=== PATIENT | male | born 1945 | race Caucasian/White ===

== ENCOUNTER 2016-12-24 15:12 | Inpatient (IN) | payer MEDICARE ==
[~2016-12-24] VITALS: Ht 182.9 cm; Wt 84.6 kg
[~2016-12-24 15:12] MED LIST: ACET-2321 PO; ASPI-557 PO; BETH25TA PO; CHOL100018 PO; CITA20TA17 PO; CLOP75TA PO; FAMO20TA8 PO; FINA5TAB42 PO; LISI-621 PO; LUBI8CAP PO; OXYC5CAP3 PO; PANT40TA PO; TAMS0.4C47 PO
--- OUTSIDE RECORDS SUMMARY | 2016-12-24 15:52 | XMS REPORT | Continuity of Care Document ---
Author Author [facility] Organization [facility] Address Unknown Phone Unavailable Care Team Providers Care Hogshead Stock Clerk Name Role Phone Sylvain Montes Primary Care Physician [phone] Source Comments Some departments are not documenting in the electronic medical record. If you do not see the information that you expected, contact Release of Information in the Health Information Management department at [phone] for further assistance in locating additional records.[facility] Active Allergies and Adverse Reactions Allergen Noted Date Severity Reactions Comments Peanut 03/31/2015 High ANAPHYLAXIS Jskiiid-Whu-Vpf Reductase 03/31/2015 Medium MUSCLE PAIN Inhibitors Current Medications Prescription Sig. Disp. Refills Start End Date Status Date clopiDOGrel (PLAVIX) 75 Take 75 mg by mouth Active mg tablet daily. aspirin EC 81 mg tablet Take 81 mg by mouth Active daily. acetaminophen (TYLENOL) Take 2 Tabs by mouth 30 Tab 1 06/02/20 Active 325 mg tablet every 6 hours as needed 15 for Pain. citalopram (CELEXA) 20 mg Take 20 mg by mouth Active tablet daily. cholecalciferol (VITAMIN Take 1,000 Units by mouth Active D-3) 1,000 units tablet daily. oxyCODONE (ROXICODONE) 5 Take 1-3 Tabs by mouth 30 Tab 0 07/26/20 Active mg tablet every 4 hours as needed 15 for Pain Earliest Fill Date: 07/26/15 amiodarone (PACERONE) 400 Take 1 Tab by mouth twice 180 Tab 3 Active mg tablet daily. 15 amiodarone (CORDARONE) Take 1 Tab by mouth twice 180 Tab 3 07/30/20 Active 200 mg tablet daily. 15 polyethylene glycol 3350 Take 17 g by mouth daily. 3 Bottle 3 Active (GLYCOLAX; MIRALAX) 17 15 gram/dose powder senna/docusate Take 2 Tabs by mouth 07/26/20 Active (SENOKOT-S) 8.6/50 mg twice daily. [address] Take 1 Tab by mouth 90 Tab 3 07/26/20 Active (PROTONIX) 40 mg tablet daily. 15 lidocaine (LIDODERM) 5 % Apply 1 Patch to affected 30 Patch 1 Active topical patch area every 24 hours. 15 Apply to abdomen. May cut to fit. On for 12hrs, off for 12hrs. Active Problems Problem Noted Date Severe protein-calorie malnutrition (HCC) 07/26/2015 Atrial fibrillation with RVR ([facility]) 07/26/2015 Overview: 07/20/15: New onset AF with RVR. Consult cardiology. Amio gtt. ECHO 07/20/15: No regional wall motion abnormalities are seen. Overall LV systolic function appears normal. The estimated left ventricular ejection fraction is 60%. Right ventricular contractility appears normal. Mild bi-atrial enlargement. Aortic valve sclerosis without stenosis. No pericardial effusion is seen. 07/21/15: ST vs A flutter. Add cardizem gtt. 07/22/15: Since did not convert to NSR, DC amio and cardizem. 07/23/15: Converted to NSR after stopping amio. DC cardizem gtt. Amio 400mg BID x1 week and then taper. S/P exploratory laparotomy 07/18/2015 Overview: 07/17/15: Exploratory laparotomy, adhesiolysis, hepaticojejunostomy, repositioning of new 14-Greek pigtail catheter into the hepaticojejunostomy. HTN (hypertension) 07/18/2015 Overview: MOLD FILLER: Lisinopril 20mg daily, Cardizem CD 240mg daily CAD (coronary artery disease) 07/18/2015 Overview: MOLD FILLER: Plavix 75mg daily, ASA 81mg daily Depression 07/18/2015 Overview: MOLD FILLER: Celexa 20mg daily Vitamin D deficiency 07/18/2015 Overview: MOLD FILLER: Vitamin d3 1000mg daily Injury of common bile duct during operative procedure 07/17/2015 Sepsis ([facility]) 06/09/2015 Cholangitis 06/02/2015 SIRS (systemic inflammatory response syndrome) ([facility]) 06/02/2015 Gram-negative bacteremia 06/01/2015 Coronary artery disease involving quileute coronary artery of quileute heart 06/2015 without angina pectoris Bile duct injury 03/31/2015 Immunizations Name Dates Previously Given Next Due Flu Vaccine 07/19/2015 Quadrivalent=>3 Yo (Preservative Free) Pneumococcal Vaccine 07/19/2015 (23-Kary Adult) Social History Tobacco Use Types Packs/Day Years Used Date Current Every Day Smoker Cigarettes 0.5 50 Smokeless Tobacco: Never Used Tobacco Cessation: Ready to Quit: No Comments: Alcohol Use Drinks/Week oz/Week Comments No 0 Standard 0.0 drinks or equivalent Last Filed Vital Signs Vital Sign Reading Time Taken Blood Pressure 129/56 07/26/2015 8:04 AM SYSTEMS SOFTWARE DESIGNER Pulse 60 07/26/2015 8:04 AM SYSTEMS SOFTWARE DESIGNER Temperature 36.4 C (97.5 F) 07/26/2015 8:04 AM SYSTEMS SOFTWARE DESIGNER Respiratory Rate - - Height 1.88 m (6' 2") 07/20/2015 3:18 PM CDT Weight 77.565 kg (171 lb) 07/20/2015 3:18 PM CDT Body Mass Index 21.95 07/20/2015 3:18 PM CDT Oxygen Saturation 95% 07/26/2015 8:04 AM SYSTEMS SOFTWARE DESIGNER Plan of Care Health Maintenance Due Date Last Done Comments Hepatitis C Screening 1945 Physical (Comprehensive) 1952 Exam Pertussis Vaccine 1956 Tetanus Vaccine 1962 Colorectal Cancer 1995 Screening Shingles Vaccine 2005 Abdominal Aortic Aneurysm 2010 Screening Prevnar/Pneumovax (#2) 07/19/2016 07/19/2015 Influenza Vaccine 05/23/2017 07/19/2015 Results from Last 3 Months Not on file
--- NOTE | 2016-12-24 15:53 | NUR ---
ADMIT PT TO RM 138 PER CART VIA [facility]. REPORT HAD PREVIOUSLY BEEN RECEIVED FROM MARI SIFUENTES FROM [facility]. PT UNRESPONSIVE. PT TRANSFERRED TO BED WITH ASSIST X4. PT INCONTINENT OF STOOL. CLEAN ATTENDS AND AME CARE GIVEN. VITALS OBTAINED AND STABLE CHARTED. PT ON O2 AT 6-7L FOR PT COMFORT. FAMILY AT BEDSIDE. WILL MONITOR.
--- OUTSIDE RECORDS SUMMARY | 2016-12-24 15:53 | XMS REPORT | Continuity of Care Document ---
Author Author [facility] Organization [facility] Address Unknown Phone Unavailable Support Name Relationship Address Phone CHILO REAL MD Caregiver [address] [place] [address] Unavailable JERRICA OLIVERA MD Caregiver [address] [place] [address] Unavailable SVITLANA GOODMAN Next Of Kin [address] [place] [address] Insurance Providers Guarantor Dillon Goodman Address [address] [place] [id number] Email UNABLE 12-21-16 Payer [employer] Policy Number [id number] Subscriber's Name Dillon Goodman Relationship 18 Self Advance Directives Directive Response Recorded Date/Time Advanced Directives Type None 12/21/16 10:22am Chief Complaint and Reason for Visit Chief Complaint Resuscitation Reason for Visit History of successful cardiopulmonary resuscitation Problems Active Problems Medical Problem Onset Date Status Anemia associated with nutritional deficiency Unknown Chronic Bradycardia with anesthesia Unknown Resolved Bradycardia with less than 60 beats per minute Unknown Chronic CAD (coronary artery disease) Unknown Chronic COPD (chronic obstructive pulmonary disease) Unknown Chronic Chest pain Unknown Acute HTN (hypertension) Unknown Chronic History of common bile duct surgery ~03/2015 Resolved Laceration of thumb, left Unknown Acute Malnutrition related to chronic disease Unknown Chronic Nausea Unknown Acute Statin intolerance Unknown Chronic Surgical wound breakdown Unknown Chronic Surgical wound infection Unknown Chronic Tobacco abuse Unknown Chronic Urinary retention with incomplete bladder emptying Unknown Acute Surgical Problem Onset Date Status History of heart artery stent Unknown Chronic Past Problems Medical Problem Onset Date History of successful cardiopulmonary resuscitation Unknown Medications Current Home Medications Medication Dose Units Route Directions Days Qty Instructions Start Date Acetaminophen (Tylenol) 325 Mg Tablet 2 Tab Oral Every 6 Hours as needed for Pain 07/28/15 Aspirin (Aspir 81) 81 Mg Tablet. 1 Tab Oral Daily 02/23/15 Bethanechol Chloride 25 Mg Tablet 1 Tab Oral Four Times Daily BEST ON EMPTY STOMACH 09/14/15 Cholecalciferol (Vitamin D3) 1,000 Unit Tablet 1 Tab Oral Daily 30 Tablet 09/14/15 Citalopram Hydrobromide (Celexa) 20 Mg Tablet 1 Tab Oral Daily Clopidogrel Bisulfate (Plavix) 75 Mg Tablet 1 Tab Oral Daily 03/06 Famotidine 20 Mg Tablet 1 Tab Oral Twice A Day 09/14/15 Finasteride 5 Mg Tablet 1 Tab Oral Daily 09/14/15 Lisinopril 20 Mg Tablet 1 Tab Oral Daily 02/23/15 Lubiprostone (Amitiza) 8 Mcg Capsule 1 Cap Oral Twice A Day 08/25 Oxycodone Hcl 5 Mg Capsule 1 Cap Oral Every 4 Hours Prn as needed for Pain 90 Capsule 09/14/15 Pantoprazole Sodium (Protonix) 40 Mg Tablet.dr 1 Tab Oral Before Breakfast 07/28/15 Tamsulosin Hcl 0.4 Mg Cap.er.24h 1 Tab Oral Bedtime 09/14/15 Past Home Medications Medication Directions Ordered Status Amiodarone Hcl (Pacerone) 400 Mg Tablet, 400 Mg Oral Twice A Day 07/28/15 Discontinued Amiodarone Hcl (Cordarone) 200 Mg Tablet, 200 Mg Oral Twice A Day 07/28/15 Discontinued Amoxicillin/Potassium Clav (Augmentin 875-125 Tablet) 1 Each Tablet, 1 Tab Oral Twice A Day 07/28/15 Discontinued Oxycodone Hcl (Roxicodone) 5 Mg Tablet, 5-15 Mg Oral Every 4 Hours Prn as needed for Pain 07/28/15 Discontinued Social History Social History Problem Response Recorded Date/Time Onset Date Status Hx Substance Use No 12/21/2016 10:30am Not Applicable Not Applicable Hx Alcohol Use No 12/21/2016 10:30am Not Applicable Not Applicable Has the pt used tobacco in the last 12 months Yes 08/28/2015 12:25pm Not Applicable Not Applicable Tobacco Usage smoke 07/28/2015 3:17pm Not Applicable Not Applicable Query Response Start Date Stop Date Smoking Status Smoker,current status unk Hospital Discharge Instructions No hospital discharge instructions. Plan of Care Discharge Date 12/21/16 1:17pm Disposition 02 TO [facility] Condition at Discharge Stabilized for Transport Prescriptions See Medication Section Referrals CHILO REAL MD Address: [address] [place] [phone] Functional Status No functional status results. Allergies, Adverse Reactions, Alerts Allergen Type Severity Reaction Status Last Updated Djqpnph-Wgx-Yct Reductase Inhibitor Allergy Unknown Active 12/21/16 Peanuts Allergy Severe throat swelling Active 12/21/16 Immunizations Query Response on File Recorded Date/Time Hx Influenza Vaccination No 08/25/15 4:16pm Hx Pneumococcal Vaccination No 08/25/15 4:16pm Hx Influenza Vaccination No 08/25/15 4:16pm Influenza Vaccine Hx June 2015 12/21/16 10:30am Vital Signs Acute Vital Signs Vital Response Date/Time Temperature (Fahrenheit) 97.7 deg F (96.8 - 99.1) 12/21/2016 1:17pm Temperature (Calculated Celsius) 36.18158 degrees C (36.0 - 37.3) 12/21/2016 1:17pm Pulse Rate (adult) 94 bpm (60 - 100) 12/21/2016 1:17pm Respiratory Rate 35 breaths/min (10 - 20) 12/21/2016 1:17pm O2 Sat by Pulse Oximetry 98 % (90 - 100) 12/21/2016 1:17pm Fraction of Inspired Oxygen (FIO2) 100 % 12/21/2016 1:17pm Blood Pressure 156/90 mm Hg 12/21/2016 1:17pm Height (Feet) 6 feet 12/21/2016 10:20am Height (Inches) 0 inches 12/21/2016 10:20am Weight (Kilograms) 101.300 kg 12/21/2016 10:20am Body Mass Index (BMI) 30.0 12/21/2016 10:20am Results Laboratory Results Test Name Result Units Flags Reference Collection Date/Time Result Date/ Time Comments White Blood Count 27.6 T/MM3 *H 4.5-11.0 12/21/2016 10:38am 12/21/2016 10 :56am Red Blood Count 3.98 M/MM3 L 4.50-5.90 12/21/2016 10:38am 12/21/2016 10: 55am Hemoglobin 13.9 GM/DL 13.5-17.5 12/21/2016 10:38am 12/21/2016 10:55am Hematocrit 40.8 % L 41-53 12/21/2016 10:38am 12/21/2016 10:55am Mean Corpuscular Volume 102.5 UM3 H 80-100 12/21/2016 10:38am 2016 10:55am Mean Corpuscular Hemoglobin 34.9 UUG H 26-34 12/21/2016 10:38am 2016 10:55am Mean Corpuscular Hemoglobin Concent 34.1 GM/DL 31-37 12/21/2016 10:38am 12/21/2016 10:55am RDW Standard Deviation 51.4 FL H 36.9-50.2 12/21/2016 10:38am 2016 10:55am Platelet Count 251 T/MM3 130-400 12/21/2016 10:38am 12/21/2016 10:55am Mean Platelet Volume 9.2 UM3 L 9.4-12.4 12/21/2016 10:38am 12/21/2016 10 :55am Neutrophils % (Manual) 61.0 % 33-66 12/21/2016 10:38am 12/21/2016 11: 12am Band Neutrophils % 15.0 % H 0-6 12/21/2016 10:38am 12/21/2016 11:12am Lymphocytes % (Manual) 15.0 % L 23-45 12/21/2016 10:38am 12/21/2016 11: 12am Monocytes % (Manual) 3.0 % 0-9.0 12/21/2016 10:38am 12/21/2016 11:12am Eosinophils % (Manual) 1.0 % 0-4 12/21/2016 10:38am 12/21/2016 11:12am Metamyelocytes % 1.0 % H 0-0 12/21/2016 10:38am 12/21/2016 11:12am Myelocytes % 1.0 % H 0-0 12/21/2016 10:38am 12/21/2016 11:12am Reactive Lymphocytes % 3.0 % H 0-0 12/21/2016 10:38am 12/21/2016 11: 12am Band Neutrophils # 4.1 T/MM3 12/21/2016 10:38am 12/21/2016 11:12am Absolute Neutrophils (Manual) 16.8 T/MM3 H 1.8-7.7 12/21/2016 10:38am 11:12am Lymphocytes # (Manual) 4.1 T/MM3 1-4.8 12/21/2016 10:38am 12/21/2016 11 :12am Monocytes # (Manual) 0.8 T/MM3 0-0.8 12/21/2016 10:38am 12/21/2016 11: 12am Eosinophils # (Manual) 0.3 T/MM3 0-0.5 12/21/2016 10:38am 12/21/2016 11 :12am Metamyelocytes # 0.3 T/MM3 12/21/2016 10:38am 12/21/2016 11:12am Myelocytes # 0.3 T/MM3 12/21/2016 10:38am 12/21/2016 11:12am Reactive Lymphocytes # 0.8 T/MM3 H 0-0 12/21/2016 10:38am 12/21/2016 11: 12am Nucleated Red Blood Cells 1 12/21/2016 10:38am 12/21/2016 11:12am Red Cell Morphology Comment ABNORMAL 12/21/2016 10:38am 12/21/2016 11:12am Anisocytosis 1+ 12/21/2016 10:38am 12/21/2016 11:12am Macrocytosis 1+ 12/21/2016 10:38am 12/21/2016 11:12am Prothromb Time International Ratio 1.20 H 0.76-1.04 12/21/2016 10:39am 12/21/2016 11:42am THERAPUTIC RANGE=2.00-3.00 FOR ANTI-THROMBOSIS THERAPUTIC RANGE=2.50-3.50 FOR IMPLANTED VALVE D-Dimer [id number] NG/ML H 0-230 12/21/2016 10:39am 12/21/2016 11:42am <230 NG/ML D-DU=PRESUMPTIVE NEGATIVE FOR PE OR DVT >230 NG/ML D-DU=ADDITIONAL EVAL FOR PE OR DVT RECOMMENDED Icterus Index < 2 0-7 12/21/2016 10:38am 12/21/2016 10:57am Chemistry Specimen Hemolysis 47 H 0-25 12/21/2016 10:38am 12/21/2016 10:57am 26-70: Specimen Exhibited Slight Hemolysis - can falsely elevate K (Potassium) and Urine Protein. Turbidity < 20 0-20 12/21/2016 10:38am 12/21/2016 10:57am Sodium Level 140 MEQ/L 134-144 12/21/2016 10:38am 12/21/2016 10:57am Potassium Level 3.5 MEQ/L L 3.6-5 12/21/2016 10:3812/21/2016 10:57am Chloride Level 104 MEQ/L 98-107 12/21/2016 10:38am 12/21/2016 10:57am Carbon Dioxide Level 17 MEQ/L L 22-30 12/21/2016 10:38am 12/21/2016 10: 57am Anion Gap 19 MEQ/L H 5-15 12/21/2016 10:38am 12/21/2016 10:57am Blood Urea Nitrogen 13.0 MG/DL 9-20 12/21/2016 10:3812/21/2016 10: 57am Creatinine 1.1 MG/DL 0.8-1.5 12/21/2016 10:3812/21/2016 10:57am BUN/Creatinine Ratio 12 RATIO 6-26 12/21/2016 10:3812/21/2016 10: 57am Glomerular Filtration Rate Calc 66 12/21/2016 10:3812/21/2016 10 :57am Glucose Level 268 MG/DL H 75-110 12/21/2016 10:3812/21/2016 10:57am Calculated Osmolality 278 MOSM/KG 261-280 12/21/2016 10:382016 10:57am Calcium Level 8.1 MG/DL L 8.4-10.2 12/21/2016 10:3812/21/2016 10: 57am Total Bilirubin 0.90 MG/DL 0.20-1.30 12/21/2016 10:3812/21/2016 10: 57am Alkaline Phosphatase 80 U/L 38-126 12/21/2016 10:3812/21/2016 10: 57am Total Protein 6.4 G/DL 6.3-8.2 12/21/2016 10:3812/21/2016 10:57am Albumin 3.8 G/DL 3.5-5.0 12/21/2016 10:3812/21/2016 10:57am Globulin 2.6 G/DL 2.4-3.6 12/21/2016 10:3812/21/2016 10:57am Albumin/Globulin Ratio 1.5 RATIO 1.1-2.2 12/21/2016 10:38am 12/21/2016 10:57am Aspartate Amino Transf (AST/SGOT) 157 U/L H 17-59 12/21/2016 10:38am 09/2016 10:57am Alanine Aminotransferase (ALT/SGPT) 213 U/L H 21-72 12/21/2016 10:38am 12/21/2016 10:57am Troponin I 0.106 ng/ml 0-0.12 12/21/2016 10:3812/21/2016 11:09am Troponin values with a difference of 55% increase from orginal troponin value represent a true biological DELTA value. (%increase Calc=Orginal Troponin value, divided by subsequent Troponin value, multiplied by 100) IV-Pie-G-Type Natriuretic Peptide 238 PG/ML H 0-175 12/21/2016 10:38am 12/21/2016 11:09am Rule in cut points: <50 years old=450; 50-75 years old=900; >75 years old=1800; When utilizing ProBNP rule-in cut points, adjustment for impaired renal function is typically not required. Arterial Blood pH 7.170 *L 7.350-7.450 12/21/2016 10:40am 12/21/2016 10 :49am Arterial Blood Partial Pressure CO2 42 MMHG 34-45 12/21/2016 10:40 10:49am Arterial Blood pO2 at Patient Temp 261 MMHG H 80-100 12/21/2016 10:4012/21/2016 10:49am Arterial Blood HCO3 15 MEQ/L L 22-26 12/21/2016 10:4012/21/2016 10: 49am Arterial Blood Total CO2 16.6 MEQ/L L 23-27 12/21/2016 10:402016 10:49am Arterial Blood Base Excess -12.7 MMOL/L L -2.0-2.0 12/21/2016 10:40 10:49am Arterial Blood Oxygen Saturation 100.0 % H 95.0-98.0 12/21/2016 10:40am 12/21/2016 10:49am Oxygen Delivery Method (LAB) VENT-ENDOTRACH, % 12/21/2016 10:40am 12/21/2016 10:49am Urine Collection Type STRAIGHT CATH 12/21/2016 11:55am 12/21/2016 11:59am Urine Color YELLOW YELLOW 12/21/2016 11:55am 12/21/2016 11:59am Urine Turbidity CLEAR CLEAR 12/21/2016 11:55am 12/21/2016 11:59am Urine Specific [place] 1.025 1.015-1.025 12/21/2016 11:55am 2016 11:59am Urine pH 6.5 5.0-8.0 12/21/2016 11:55am 12/21/2016 11:59am Urine Leukocyte Esterase NEGATIVE NEGATIVE 12/21/2016 11:55am 2016 11:59am Urine Nitrite NEGATIVE NEGATIVE 12/21/2016 11:55am 12/21/2016 11: 59am Urine Protein 3+ A NEGATIVE 12/21/2016 11:55am 12/21/2016 11:59am Urine Glucose (UA) TRACE A NEGATIVE 12/21/2016 11:55am 12/21/2016 11: 59am Urine Ketones NEGATIVE NEGATIVE 12/21/2016 11:55am 12/21/2016 11: 59am Urine Urobilinogen 0.2 EU/DL NORMAL 12/21/2016 11:55am 12/21/2016 11: 59am Urine Bilirubin NEGATIVE NEGATIVE 12/21/2016 11:55am 12/21/2016 11: 59am Urine Blood 3+ A NEGATIVE 12/21/2016 11:55am 12/21/2016 11:59am Urine WBC 1-3 /HPF 0-5 12/21/2016 11:55am 12/21/2016 12:09pm Urine RBC 30-50 /HPF H 0-3 12/21/2016 11:55am 12/21/2016 12:09pm Urine Squamous Epithelial Cells 0-5 12/21/2016 11:55am 12/21/2016 12:09pm Urine Transitional Epithelial Cells 3-5 /HPF 12/21/2016 11:55am 12/21 12:09pm Urine Renal Epithelial Cells 1-3 /HPF 12/21/2016 11:55am 12/21/2016 12:09pm Urine Bacteria 1+ H NEGATIVE 12/21/2016 11:55am 12/21/2016 12:09pm Urine Coarse Granular Casts 1-3 /LPF 12/21/2016 11:55am 12/21/2016 12 :09pm Urine Culture Indicated CULT NOT INDICATED 12/21/2016 11:55am 12/21 12:09pm Procedures Procedure Status Date Provider(s) Njx interlaminar lmbr/sac Completed 10/22/16"INJECTION, METHYLPREDNISOLONE ACETATE, 40 MG" Completed 10/22/16"LOW OSMOLAR CONTRAST MATERIAL, 100-199 MG/ML IODINE C Completed Njx interlaminar lmbr/sac Completed 12/02/16 JAIMEE KINGSLEY DO "INJECTION, METHYLPREDNISOLONE ACETATE, 40 MG" Completed 12/02/16"LOW OSMOLAR CONTRAST MATERIAL, 100-199 MG/ML IODINE C Completed Encounters Encounter Location Arrival/Admit Date Discharge/Depart Date Attending Provider Departed Emergency Room [facility] 12/21/16 10:18am 12/21/16 1: 17pm JERRICA OLIVERA MD Registered [facility] 12/02/16 12:26pm CHILO REAL MD Registered [facility] 10/22/16 9:35am CHILO REAL MD Recent Diagnosis
--- OUTSIDE RECORDS SUMMARY | 2016-12-24 15:54 | XMS REPORT | Continuity of Care Document ---
Author Author [facility] Organization [facility] Address Unknown Phone Unavailable Allergies Active Description Code Type Severity Reaction Onset Reported/Identified Relationship to Patient Clinical Status Yes Nuts egg- containing compound N/A N/A 03/23/2015 Yes statins NKMA N/A N/A 03/23/2015 Yes Nuts 99180 N/A N/A 03/23/2015 Yes statins NKMA N/A N/A 03/23/2015 Yes Vwbdxuk-Aus-Uhl Reductase Inhibitor Dwyrfdj-Lth-Tvc Reductase Inhibitor Drug Allergy Unknown UNKNOWN 05/12/2015 Yes Zzpksko-Ctw-Epe Reductase Inhibitor Chzvbym-Coi-Dcw Reductase Inhibitor Drug Allergy Unknown muscle weakness 05/15/2015 Medications Problems Date Dx Coded Attending Type Code Diagnosis Diagnosed By 03/31/2015 Kin Gage MD Final 305.1 TOBACCO USE DISORDER 03/31/2015 Kin Gage MD Final 568.0 PERITONEAL ADHESIONS (POSTOPERATIVE) ( POSTINFECTION) 03/31/2015 Kin Gage MD Final 574.00 CALCULUS OF GALLBLADDER WITH ACUTE CHOLECYSTITIS, WITHOUT MENTION OF OBSTRU 03/31/2015 Kin Gage MD Final 574.10 CALCULUS OF GALLBLADDER WITH OTHER CHOLECYSTITIS, WITHOUT MENTION OF OBSTRU 03/31/2015 Kin Gage MD Final V64.41 Laparoscopic surgical procedure converted to open procedure 03/31/2015 Wil Vaz MD Final 305.1 TOBACCO USE DISORDER 03/31/2015 Wil Vaz MD Final 401.9 UNSPECIFIED ESSENTIAL HYPERTENSION 03/31/2015 Wil Vaz MD Final 412 OLD MYOCARDIAL INFARCTION 03/31/2015 Wil Vaz MD Final 414.01 CORONARY ATHEROSCLEROSIS OF [place] CORONARY ARTERY 03/31/2015 Wil Vaz MD Final 496 CHRONIC AIRWAY OBSTRUCTION, NOT ELSEWHERE CLASSIFIED 03/31/2015 Wil Vaz MD Final 780.57 Unspecified sleep apnea 03/31/2015 Wil Vaz MD Reason 997.49 Other Digestive System Complications 03/31/2015 Wil Vaz MD Final V45.82 PERCUTANEOUS TRANSLUMINAL CORONARY ANGIOPLASTY, POSTSURGICAL STATUS 03/31/2015 Milind ALVAREZ, Wil Abdi Final V58.69 Long-Term (Current) Use of Other Medications 04/24/2015 Stephanie Biswas Final 276.51 Dehydration 04/24/2015 Stephanie Biswas Final 305.1 TOBACCO USE DISORDER 04/24/2015 Stephanie Biswas Final 327.23 Obstructive sleep apnea (adult) ( pediatric) 04/24/2015 Stephanie Biswas Final 401.9 UNSPECIFIED ESSENTIAL HYPERTENSION 04/24/2015 Stephanie Biswas Final 414.01 CORONARY ATHEROSCLEROSIS OF [place] CORONARY ARTERY 04/24/2015 Stephanie Biswas Final 496 CHRONIC AIRWAY OBSTRUCTION, NOT ELSEWHERE CLASSIFIED 04/24/2015 Stephanie Biswas Final 576.1 CHOLANGITIS 04/24/2015 Stephanie Biswas Final 584.9 Acute Kidney Failure, Unspecified 04/24/2015 Stephanie Biswas Final 782.4 JAUNDICE, UNSPECIFIED, NOT OF 04/24/2015 Stephanie Biswas Admitting 789.01 04/24/2015 Stephanie Biswas Final 995.91 Sepsis 04/24/2015 Stephanie Biswas Final 038.9 UNSPECIFIED SEPTICEMIA 05/22/2015 Stephanie Biswas Admitting 311 05/31/2015 Stephanie Biswas Final 276.1 HYPOSMOLALITY AND/OR HYPONATREMIA 05/31/2015 Stephanie Biswas Final 276.2 ACIDOSIS 05/31/2015 Stephanie Biswas Final 276.51 Dehydration 05/31/2015 Stephanie Biswas Final 305.1 TOBACCO USE DISORDER 05/31/2015 Stephanie Biswas Final 401.9 UNSPECIFIED ESSENTIAL HYPERTENSION 05/31/2015 Stephanie Biswas Final 414.01 CORONARY ATHEROSCLEROSIS OF [place] CORONARY ARTERY 05/31/2015 Stephanie Biswas Final 427.89 OTHER SPECIFIED CARDIAC DYSRHYTHMIAS 05/31/2015 Stephanie Biswas Final 518.0 PULMONARY COLLAPSE 05/31/2015 Stephanie Biswas Final 584.5 Acute Kidney Failure with Lesion of Tubular Necrosis 05/31/2015 Stephanie Biswas Admitting 584.9 Acute Kidney Failure, Unspecified 05/31/2015 Stephanie Biswas Final E947.8 OTHER DRUGS AND MEDICINAL SUBSTANCES CAUSING ADVERSE EFFECTS IN THERAPEUTIC 05/31/2015 Stephanie Biswas Final V45.82 PERCUTANEOUS TRANSLUMINAL CORONARY ANGIOPLASTY, POSTSURGICAL STATUS 06/29/2015 Stephanie Biswas Final B96.20 Unspecified Escherichia coli [E. coli ] as the cause of diseases classified 06/29/2015 Stephanie Biswas Final D63.1 Anemia in chronic kidney disease 06/29/2015 Stephanie Biswas Final E86.0 Dehydration 06/29/2015 Stephanie Biswas Final E87.1 Hypo-osmolality and hyponatremia 06/29/2015 Stephanie Biswas Final F17.200 Nicotine dependence, unspecified, uncomplicated 06/29/2015 Stephanie Biswas Final G47.33 Obstructive sleep apnea (adult) ( pediatric) 06/29/2015 Stephanie Biswas Final I10 Essential (primary) hypertension 06/29/2015 Stephanie Biswas Final I63.9 Cerebral infarction, unspecified 06/29/2015 Stephanie Biswas Final I95.9 Hypotension, unspecified 06/29/2015 Stephanie Biswas Final J44.9 Chronic obstructive pulmonary disease, unspecified 06/29/2015 Stephanie Biswas Final K57.90 Diverticulosis of intestine, part unspecified, without perforation or absce 06/29/2015 Stephanie Biswas Final K80.50 Calculus of bile duct without cholangitis or cholecystitis without obstruct 06/29/2015 Stephanie Biswas Final N17.9 Acute kidney failure, unspecified 06/29/2015 Stephanie Biswas Final N39.0 Urinary tract infection, site not specified 06/29/2015 Stephanie Biswas Admitting R53.1 Weakness Procedures Code Description Performed By Performed On 54.51 Laparoscopic lysis of peritoneal adhesions 03/23/2015 56560 Endoscopic retrograde cholangiopancreatography (ERCP); with sphincterotomy / 03/30/2015 00.43 PROCEDURE ON FOUR OR MORE VESSELS Gennaro Taylor MD 05/15/2015 00.45 INSERTION OF ONE VASCULAR STENT Gennaro Taylor MD 05/15/2015 00.66 PERCUTANEOUS TRANSLUMINAL CORONARY ANGIOPLASTY [PT Gennaro Taylor MD H 05/15/2015 36.06 CORONARY ARTERY STENT INSERTION EHA-SYZK-[id number] Gennaro Taylor MD 05/15/2015 37.22 LEFT HEART CARDIAC CATH Gennaro Taylor MD 05/15/2015 88.57 CORONARY ARTERIOGRAM NEC Gennaro Taylor MD 05/15/2015 Results Test Result Range [facility] - 05/15/15 05:55 MEAN CELL HGB 32.1 pg 27.0-33.0 MEAN CELL HGB CONCENTRATION 34.4 g/dL 32.0-37.0 MEAN CELL VOLUME 93.1 fl 80.0-100.0 RED BLOOD CELL 4.18 m/cumm 4.00-6.00 RED CELL DISTRIBUTION WIDTH 14.1 % 11.0- 15.6 WHITE BLOOD CELL 11.4 k/cumm 5.0-10.0 HEMOGLOBIN 13.4 gm/dL 14.0-18.0 HEMATOCRIT 38.9 % 40.0-54.0 PLATELET COUNT 271 k/cumm 150-400 Microbiology METABOLIC PANEL, BASIC - 05/15/15 05:55 POTASSIUM 3.3 mmol/L 3.5-5.3 EST GFR (MDRD) 60 mL/min > 59 ANION GAP 11 mmol/L 5-15 EST CrCl (CG) > 60 mL/min > 59 GLUCOSE 107 mg/dL 70-99 CALCIUM 9.1 mg/dL 8.5-10.1 BLOOD UREA NITROGEN 23 mg/dL 7-20 CREATININE 1.2 mg/dL 0.7-1.3 SODIUM 138 mmol/L 135-148 CHLORIDE 104 mmol/L 98-110 CARBON DIOXIDE 23 mmol/L 21-32 Microbiology CBC - 05/16/15 03:54 MEAN CELL HGB 32.4 pg 27.0-33.0 MEAN CELL HGB CONCENTRATION 34.6 g/dL 32.0-37.0 MEAN CELL VOLUME 93.6 fl 80.0-100.0 RED BLOOD CELL 3.92 m/cumm 4.00-6.00 RED CELL DISTRIBUTION WIDTH 14.2 % 11.0- 15.6 WHITE BLOOD CELL 9.9 k/cumm 5.0-10.0 HEMOGLOBIN 12.7 gm/dL 14.0-18.0 HEMATOCRIT 36.7 % 40.0-54.0 PLATELET COUNT 239 k/cumm 150-400 Microbiology METABOLIC PANEL, BASIC - 05/16/15 03:54 POTASSIUM 3.5 mmol/L 3.5-5.3 EST GFR (MDRD) > 60 mL/min > 59 ANION GAP 10 mmol/L 5-15 EST CrCl (CG) > 60 mL/min > 59 GLUCOSE 99 mg/dL 70-99 CALCIUM 8.6 mg/dL 8.5-10.1 BLOOD UREA NITROGEN 14 mg/dL 7-20 CREATININE 1.0 mg/dL 0.7-1.3 SODIUM 139 mmol/L 135-148 CHLORIDE 105 mmol/L 98-110 CARBON DIOXIDE 24 mmol/L 21-32 Microbiology LACTIC ACID - 12/21/16 15:27 LACTIC ACID 2.8 mmol/L 0.5-2.0 ARTERIAL BLOOD GAS - 12/21/16 15:27 ABG BASE EXCESS -6.0 meq/L -3.0-3.0 ABG FIO2 100 % ABG BICARBONATE 20.5 meq/L 23.0-28.0 ABG PCO2 44 mm Hg 34-45 ABG PEEP 5 CM ABG PH 7.29 7.35-7.45 ABG PO2 123 mm Hg 75-100 ABG O2 SATURATION 98 % 93-100 ABG TEMPERATURE 36.7 C ABG TIDAL VOLUME 450 CC B-TYPE NATRIURETIC PEPTIDE - 12/21/16 15:27 B-TYPE NATRIURETIC PEPTIDE 31 pg/mL < 100 CBC W/DIFF - 12/21/16 15:27 GRANULOCYTE # 26.3 k/cumm 2.0-9.0 LYMPHOCYTE # 0.6 k/cumm 1.0-4.0 LYMPHOCYTE % 2 % 20-30 MEAN CELL HGB 34.3 pg 27.0-33.0 MEAN CELL HGB CONCENTRATION 34.5 g/dL 32.0-37.0 MEAN CELL VOLUME 99.5 fl 80.0-100.0 MONOCYTE # 2.3 k/cumm 0.1-1.0 MONOCYTE % 8 % 4-6 RED BLOOD CELL 4.31 m/cumm 4.00-6.00 RED CELL DISTRIBUTION WIDTH 14.4 % 11.0- 15.6 TOXIC GRANULATION NOTED WHITE BLOOD CELL 29.2 k/cumm 5.0-10.0 HEMOGLOBIN 14.8 gm/dL 14.0-18.0 HEMATOCRIT 42.9 % 40.0-54.0 PLATELET COUNT 230 k/cumm 150-400 MANUAL DIFF(R) - 12/21/16 15:27 BAND % 16 % 0-10 DIFFERENTIAL MANUAL RBC MORPH NOTED SEGMENTED NEUTROPHIL % 74 % 50-70 HEMOGLOBIN A1C - 12/21/16 15:27 HEMOGLOBIN A1C 6.2 % < 5.7 AG LEGIONELLA URINE - 12/21/16 15:27 Microbiology PROCALCITONIN - 12/21/16 15:27 PROCALCITONIN 0.93 ng/mL < 0.10 VIRUS RESPIRATORY PROFILE - 12/21/16 15:39 Microbiology UR DRUGS OF ABUSE SCREEN - 12/21/16 15:41 UR AMPHETAMINES SCREEN NEG (<1000 ng/mL) NEGATIVE UR BARBITURATE SCREEN NEG (< 200 ng/mL) NEGATIVE DRUGS OF ABUSE SCREEN COMMENT UR OPIATES SCREEN NEG (< 300 ng/mL) NEGATIVE UR PHENCYCLIDINE (PCP) SCREEN NEG (< 25 ng/mL) NEGATIVE UR CANNABINOIDS (THC) SCREEN NEG (< 50 ng/mL) NEGATIVE UR COCAINE METABOLITE SCREEN NEG (< 300 ng/mL) NEGATIVE UR METHADONE SCREEN NEG (< 300 ng/mL) NEGATIVE UR BENZODIAZEPINE SCREEN POS (> 200 ng/mL) NEGATIVE D-DIMER QUANT - 12/21/16 16:30 D-DIMER QUANT 45737 ng/mL 0-229 METABOLIC PANEL, COMPREHN - 12/21/16 17:00 POTASSIUM 3.9 mmol/L 3.5-5.3 EST GFR (MDRD) 54 mL/min > 59 ANION GAP 9 mmol/L 5-15 EST CrCl (CG) > 60 mL/min > 59 GLUCOSE 165 mg/dL 70-99 CALCIUM 7.7 mg/dL 8.5-10.1 BLOOD UREA NITROGEN 20 mg/dL 7-20 CREATININE 1.3 mg/dL 0.7-1.3 SODIUM 139 mmol/L 135-148 CHLORIDE 106 mmol/L 98-110 AST/SGOT 141 Units/L 10-37 ALT/SGPT 198 Units/L < 66 CARBON DIOXIDE 24 mmol/L 21-32 TOTAL PROTEIN 6.3 gm/dL 6.4-8.2 ALBUMIN 3.6 gm/dL 3.4-5.0 BILI TOTAL 1.1 mg/dL 0.0-1.0 ALKALINE PHOSPHATASE TOTAL 80 IU/L 45- 117 LIPID PANEL - 12/21/16 17:00 CHOLESTEROL/HDL RATIO 3.9 < 5.0 LDL CHOLESTEROL 91 mg/dL < 100 VLDL CHOLESTEROL 15 mg/dL < 30 TRIGLYCERIDES 73 mg/dL < 150 CHOLESTEROL 143 mg/dL < 200 HDL CHOLESTEROL 37 mg/dL > 39 PHOSPHORUS - 12/21/16 17:00 PHOSPHORUS 3.6 mg/dL 2.5-4.9 CREATINE KINASE (CK/CPK) - 12/21/16 17:00 CREATINE KINASE (CK/CPK) 1047 Units/L < 309 MAGNESIUM - 12/21/16 17:00 MAGNESIUM 1.6 mg/dL 1.8-2.4 THYROID STIM HORMONE (TSH) - 12/21/16 17:00 THYROID STIM HORMONE (TSH) 0.37 uIU/mL 0.34-4.82 ALCOHOL (ETHANOL) SERUM - 12/21/16 17:00 ALCOHOL (ETHANOL) SERUM < 3 mg/dL < 10 TROPONIN I - 12/21/16 17:00 TROPONIN I 5.30 ng/mL < 0.07 LACTIC ACID - 12/21/16 18:00 LACTIC ACID 2.8 mmol/L 0.5-2.0 PARTIAL THROMBOPLASTIN TIME - 12/21/16 20:01 PARTIAL THROMBOPLASTIN TIME 30 sec 25-37 LACTIC ACID - 12/21/16 21:35 LACTIC ACID 2.2 mmol/L 0.5-2.0 TROPONIN I - 12/21/16 21:35 TROPONIN I 4.13 ng/mL < 0.07 GRAM STAIN SPUTUM - SPUTUM CULTURE - 12/21/16 21:38 Microbiology TROPONIN I - 12/22/16 02:20 TROPONIN I 2.79 ng/mL < 0.07 PTT HEPARIN PROTOCOLS - 12/22/16 02:20 PARTIAL THROMBOPLASTIN TIME 145 sec 25- 37 CBC W/DIFF - 12/22/16 05:39 GRANULOCYTE # 15.6 k/cumm 2.0-9.0 LYMPHOCYTE # 1.4 k/cumm 1.0-4.0 LYMPHOCYTE % 8 % 20-30 MEAN CELL HGB 33.6 pg 27.0-33.0 MEAN CELL HGB CONCENTRATION 34.6 g/dL 32.0-37.0 MEAN CELL VOLUME 97.1 fl 80.0-100.0 MONOCYTE # 0.3 k/cumm 0.1-1.0 MONOCYTE % 2 % 4-6 NUCLEATED RED BLOOD CELL 1 /100 WBC RED BLOOD CELL 3.78 m/cumm 4.00-6.00 RED CELL DISTRIBUTION WIDTH 14.3 % 11.0- 15.6 WHITE BLOOD CELL 17.3 k/cumm 5.0-10.0 HEMOGLOBIN 12.9 gm/dL 14.0-18.0 HEMATOCRIT 36.6 % 40.0-54.0 PLATELET COUNT 188 k/cumm 150-400 MANUAL DIFF(R) - 12/22/16 05:39 BAND % 13 % 0-10 DIFFERENTIAL MANUAL RBC MORPH NOTED SEGMENTED NEUTROPHIL % 77 % 50-70 METABOLIC PANEL, COMPREH - 12/22/16 05:39 POTASSIUM 3.8 mmol/L 3.5-5.3 EST GFR (MDRD) > 60 mL/min > 59 ANION GAP 8 mmol/L 5-15 EST CrCl (CG) > 60 mL/min > 59 GLUCOSE 145 mg/dL 70-99 CALCIUM 7.3 mg/dL 8.5-10.1 BLOOD UREA NITROGEN 20 mg/dL 7-20 CREATININE 1.1 mg/dL 0.7-1.3 SODIUM 135 mmol/L 135-148 CHLORIDE 103 mmol/L 98-110 AST/SGOT 95 Units/L 10-37 ALT/SGPT 157 Units/L < 66 CARBON DIOXIDE 24 mmol/L 21-32 TOTAL PROTEIN 5.9 gm/dL 6.4-8.2 ALBUMIN 3.2 gm/dL 3.4-5.0 BILI TOTAL 1.5 mg/dL 0.0-1.0 ALKALINE PHOSPHATASE TOTAL 59 IU/L 45- 117 PHOSPHORUS - 12/22/16 05:39 PHOSPHORUS 3.2 mg/dL 2.5-4.9 MAGNESIUM - 12/22/16 05:39 MAGNESIUM 1.9 mg/dL 1.8-2.4 ARTERIAL BLOOD GAS - 12/22/16 05:43 ABG BASE EXCESS -0.5 meq/L -3.0-3.0 ABG FIO2 50 % ABG BICARBONATE 23.3 meq/L 23.0-28.0 ABG PCO2 36 mm Hg 34-45 ABG PEEP 5 CM ABG PH 7.43 7.35-7.45 ABG PO2 78 mm Hg 75-100 ABG VENT RATE 14 ABG O2 SATURATION 95 % 93-100 ABG TIDAL VOLUME 450 CC PTT HEPARIN PROTOCOLS - 12/22/16 10:26 PARTIAL THROMBOPLASTIN TIME 70 sec 25-37 PTT HEPARIN PROTOCOLS - 12/22/16 17:53 PARTIAL THROMBOPLASTIN TIME 56 sec 25-37 Encounters ACCT No. Visit Date/Time Discharge Status Pt. Type Provider Facility Loc./Unit Complaint [id number] 05/15/2015 05:00:00 2014 15:02:00 DIS Outpatient Brandon ALVAREZ, [facility] [id number] 12/21/2016 13:45:00 Document Registration
[2016-12-24] MEDS ORDERED: ONDANSETRON 4mg/2ml INJECTION IV PRN (16:00)
[2016-12-24 16:06] VITALS: BP 133/74; PULSE 90; RESP 22; TEMP 98; O2SAT 94
[2016-12-24 16:09] VITALS: Ht 182.9 cm; Wt 84.6 kg
[2016-12-24] MEDS: MORPHINE SULFATE 10 MG SYRINGE IV PRN ×5 (16:28→23:31)
--- NOTE | 2016-12-24 16:28 | NUR ---
COMFORT PT HAS PICC TO RIGHT UPPER ARM. HAVE ORDER MAY USE PICC. ABLE TO ASPIRATE BLOOD INTO PICC LINE WHEN FLUSHED BEFORE MORPHINE GIVEN. MORPHINE 5 MG IV GIVEN FOR PT COMFORT. PT RESTING QUIETLY. WILL MONITOR.
[2016-12-24] MEDS ORDERED: SCOPOLAMINE 1.5 MG PATCH TD SCH (16:30)
[2016-12-24 16:38] VITALS: O2SAT 94
--- NOTE | 2016-12-24 17:00 | NUR ---
PICC ALL THREE LUMENS OF PICC FLUSHED WITH 10 CC'S NORMAL SALINE AND ALL THREE LINES NOTED TO ASPIRATE BLOOD. ORDER RECEIVED THAT NO X-RAY NEEDED TO CONFIRM PLACEMENT OF PICC.
[2016-12-24] MEDS ORDERED: ACETAMINOPHEN 325 MG SUPPOSITORY RECTALLY PRN (17:30)
[2016-12-24] MEDS: LORAZEPAM 2 MG/ML INJECTION IV PRN ×2 (18:21→22:04)
--- NOTE | 2016-12-24 18:26 | NUR ---
COMFORT PT'S RESPIRATIONS LABORED AND PT MOANS SOFTLY. MORPHINE 5 MG IV AND ATIVAN 1 MG IV GIVEN OVER A PERIOD OF TIME-SEE EMAR. FAMILY AT BEDSIDE. WILL CONTINUE TO MONITOR.
--- NOTE | 2016-12-24 18:39 | NUR ---
SUCTION ATTEMPT MADE TO SUCTION PT BY RT LANETTE. ATTEMPT NOT SUCCESSFUL AT THIS TIME-PT BITES ON CATHETER. PT RESTING MORE QUIETLY. WILL CONTINUE TO MONITOR.
--- NOTE | 2016-12-24 18:41 | HPF ---
CHIEF COMPLAINT Unresponsive post successful CODE BLUE resuscitations. HISTORY OF PRESENT ILLNESS Mr. Goodman is a 71-year-old gentleman who was made direct admit to [facility] for palliative care with [facility]. He presented to [facility] Emergency Room via EMS on 12/21/2016. He was at home when he passed out. was there. EMS was activated, and CPR was promptly started. He did have episodes of V-tach and required four cardioversions. He also received epinephrine. He was intubated. In the emergency room, he was evaluated. CT of chest showed severe consolidation of right lung--pneumonia or possible aspiration. White count was quite elevated. Initial troponin was 0.16. He was acidotic with pH of 7.170[place] [address]. He was subsequently transferred to [facility] for intensive care. During his stay at [facility], he had a persistent metabolic encephalopathy and did develop shock liver and acute kidney injury. He underwent CT PE protocol and was found to have right middle lobe pulmonary emboli. Additionally on CT scan a T9 fracture was found. Neurosurgery was consulted, and they do not feel surgery was indicated, recommending a brace. While he did stabilize medically in that his acute kidney injury and acute shock liver was showing improvement, he never really regained consciousness. He was able to be successfully extubated yesterday but his consciousness has not improved. Family members do not feel he would want further care or support. Indeed, in talking with his daughter, it sounds as if he would not have wanted resuscitation but they could not find paperwork at scene prior to EMS's activation. His also has been quite ill with multiple myeloma. She resides in [place], [place], and the logistics of getting down to see him at [facility] is quite a struggle for her. [facility] was initiated while at [facility], and ultimately arrangements for continued medical care at [facility] were made. Dr. Cardoso was notified by Dr. Tavera, and case was discussed at length. It seems very reasonable for patient to have his hospice care provided at [facility] to facilitate comfort on friends and family members as well as for the patient's comfort. He was subsequently placed in inpatient admission status at [facility]. Hospice care was initiated with [facility]. It is thought that his length of stay will need to be greater than two midnights. Patient does appear terminal secondary to his underlying coronary artery disease. PAST MEDICAL HISTORY Recent successful CODE BLUE 12/21/2016. Coronary artery disease with history of prior stent placement. Hypertension. Statin intolerance. COPD. Asthma. GERD. BPH. Urinary retention. Tobacco abuse. Lumbar disc disease. Depression. History of cholecystectomy. History of extensive abdominal wound requiring incision and drainage and wound V.A.C. post cholecystectomy. History of bilateral elbow surgeries. History of T&A. ALLERGIES Statin, peanuts. HOME MEDICATIONS Plavix 75 mg daily. Lisinopril 20 mg daily. Mobic 15 mg daily. CURRENT MEDICATIONS FROM [facility] Morphine sulfate 5 to 20 mg p.o. every 1 hour p.r.n. Morphine sulfate 2 to 10 mg IV every 30 minutes p.r.n. Tylenol [address] p.r.n. Haldol 0.5 mg to 1 mg every 4 hours p.r.n. Lorazepam 0.5 mg to 2 mg p.o. every 1 hour p.r.n. Lorazepam 0.5 mg to 2 mg IV every 30 minutes p.r.n. Albuterol every 1 hour p.r.n. Viscous lidocaine p.r.n. Natural Tears p.r.n. Simethicone 160 mg every 6 hours p.r.n. Dulcolax suppository p.r.n. Fleet's enema p.r.n. Zofran 4 mg every 6 hours p.r.n. Phenergan 12.[address] every 12 hours p.r.n. Scopolamine patch every third day. Saliva substitute p.r.n. SOCIAL HISTORY Patient is and they reside in [place], [place]. He has been a long-time smoker. 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. Ibarra is his primary care provider. FAMILY HISTORY Coronary artery disease and hypertension. REVIEW OF SYSTEMS Unobtainable secondary to the patient being obtunded and unresponsive. PHYSICAL EXAMINATION VITAL SIGNS: Height 72 inches. Weight 96.6 kg. BMI 28.9. Temperature 98.0. Pulse 90, regular. Respiratory rate 22, with labor. Blood pressure 133/74, 94% saturation on 6 to 7 liters of oxygen. GENERAL: Well-developed, well-nourished gentleman who is somnolent. He does not respond to verbal or noxious stimuli. HEENT: NC/AT. Extraocular movements are not intact. Mucous membranes dry. NECK: Midline supple. LUNGS: Coarse breath sounds are auscultated bilaterally. He does have some slight struggle of breathing even with oxygen. CARDIOVASCULAR: Distant but regular. Difficult to auscultate secondary to harsh lung tones. ABDOMEN: Soft, nondistended, nontender. Bowel sounds are hypoactive but present. EXTREMITIES: No cyanosis or edema. Clubbing of the patient's fingernails is noted. NEUROLOGIC: Patient is obtunded. He is not responding to verbal or noxious stimuli. PSYCHIATRIC: Patient is obtunded, not responding to verbal or noxious stimuli. SKIN: Warm and dry. LABORATORY None obtained. ASSESSMENT 1. Terminal coronary artery disease--status post recent successful CODE BLUE resuscitation 2. Recent post CODE BLUE. 3. Metabolic encephalopathy. 4. Recent acute kidney injury. 5. Pulmonary embolism. 6. Acute respiratory insufficiency. 7. Recent shock liver. 8. Hypertension. 9. Chronic obstructive pulmonary disease. 10. Tobacco dependency. 11. Lumbar disc disease. 12. Overweight with BMI 28.9. PLAN 1. Will place patient inpatient admission status at [facility] under the care of Dr. Cardoso. 2. [facility] will be consulted to help manage patient's end-of-life symptoms. 3. We will have morphine 1 to 10 mg IV every 30 minutes as needed for pain and air hunger. 4. Lorazepam will be available 0.5 mg to 1 mg IV every 4 hours p.r.n. anxiety, agitation, and air hunger. 5. Levsin as needed for secretions. We will continue scopolamine patch. Suction may be utilized as needed. 6. Continuous supplemental oxygen for comfort measures. 7. Have Zofran available as needed for nausea. 8. Work to maximize the patient's pain in his terminal hours. 9. Emotional support provided to family members. 10. Patient will be DNR as per his request. [facility]
--- NOTE | 2016-12-24 22:45 | NUR ---
Catheter: Pt has smith catheter that Pt came with from [facility] today as per report from MARI Velazco. Obtained order from Dr. Blake to continue smith catheter. This nurse verbalized understanding.
[2016-12-24 22:50] VITALS: BP 144/69; PULSE 94; RESP 26; TEMP 97.7; O2SAT 92
[2016-12-25] MEDS: MORPHINE SULFATE 10 MG SYRINGE IV PRN ×8 (01:38→10:39)
[2016-12-25] MEDS: LORAZEPAM 2 MG/ML INJECTION IV PRN ×3 (03:12→10:36)
--- NOTE | 2016-12-25 06:12 | NUR ---
Shift Summary: Pt has been turned q 4hours during the night. Pt daughter verbalizes that she does not want him turned more often than that. Pt is on 5L of O2 at this time. Pt was NT suctioned once this am by RT. Pt daughter is present in room all shift. Pt does not verbalize and is unconscious. Pt has increased respirations and moans at times. PRN Morphine and Ativan given during the night multiple times. Pt resting in bed. Catheter intact and draining. Low urine output this am. Will continue to monitor.
[2016-12-25 07:39] VITALS: BP 112/55; PULSE 109; RESP 8; TEMP 98.5; O2SAT 85
[2016-12-25] MEDS: HYOSCYAMINE 0.125 MG SUBLINGUAL TABLET SL PRN ×2 (07:46→10:01)
[2016-12-25 09:00] VITALS: RESP 5
[2016-12-25 10:39] VITALS: RESP 10
--- NOTE | 2016-12-25 11:30 | NUR ---
Status This RN notified by REAL ESTATE SALES SUPERVISOR Emmanuelle that patient was found not breathing at 11:20 during hourly rounding. Patient's daughter states that patient took his last breath at 11:01. No heart of breath sounds noted at this time by this RN. Dr. Cardoso notified at this time.
--- NOTE | 2016-12-25 12:30 | NUR ---
Cares Urinary catheter and PICC line removed by oil and gas well treatment operator. Patient cleaned and turned by oil and gas well treatment operator and ASHLEIGH Handley.
--- NOTE | 2016-12-25 13:58 | NUR ---
DARIANA CM VISITED PT AND DAUGHTER WHO WAS AT BEDSIDE. CM EXPLAINED ROLE AND PROVIDED CONTACT INFORMATION. PT IS INPT [facility]. DAUGHTER AWARE TO CONTACT CM IF NEEDS ARISE.
--- NOTE | 2016-12-25 17:01 | PNF ---
DATE 12/25/2016 TIME 1140 hours FOLLOWUP Terminal coronary artery disease, recent successful resuscitation. SUBJECTIVE When I did come in to check on patient this morning I found the patient unresponsive in bed with his daughter and nursing nearby. Nursing reports they were just about to call me as they worried he had passed. Earlier this morning I did discuss case with his hospice nurse. He was still requiring significant amounts of morphine for pain control but it seemed that they were maintaining comfort. Daughter reports that a little bit before 11 o'clock she a bit of peaceful time with her father. She was holding his hand and telling him that she was not going to abandon Bertha (patient's ). Shortly thereafter he had a sigh and daughter could tell that he had passed. Indeed, she felt that she could feel his breath and spirit go right through her. With hospice care he was kept peaceful and comfortable until his terminal event. OBJECTIVE GENERAL: The patient was found motionless in bed. He had no response to verbal or noxious stimuli. CARDIOVASCULAR: No apical heart tones were auscultated. LUNGS: No spontaneous respiration or breath tones were auscultated. NEUROLOGIC: The patient had no response to verbal or noxious stimuli. ASSESSMENT 1. secondary to complications of coronary artery disease. 2. Recent successful Code Blue. 3. Metabolic encephalopathy. 4. Recent acute kidney injury. 5. Pulmonary embolism. 6. Acute respiratory insufficiency. 7. Recent shock liver. 8. Hypertension. 9. COPD. 10. Tobacco dependency. 11. Lumbar disk disease. 12. Overweight with BMI 29.9. PLAN 1. The patient was pronounced by me. Time of is 11:01 per daughter report, I do feel she is reliable on this. 2. Cause of was secondary to coronary artery disease. Manner of was natural. His acute passing was anticipated - he was on hospice care. No resuscitation efforts were made as patient was DNR. 3. Hospitality Ambassador was contacted in light of the patient's passing within 24 hours of being admitted to [facility]. Hospitality Ambassador does not feel further investigation is needed. 4. Tobacco did play a role in patient's . 5. Body will be released to mortuary. 6. Emotional support provided to the patient's daughter. 7. Hospice nurses were thanked for their care and expertise. MARC
--- NOTE | 2016-12-25 18:15 | NUR ---
DEPARTURE [facility] contracted by [facility] to chart picker the body. [facility] here to chart picker the body. Body taken by cart to their transportation.
--- NOTE | 2016-12-26 13:34 | DESF ---
ADMISSION DIAGNOSIS Terminal coronary artery disease - status post recent successful Code Blue resuscitation. DISCHARGE DIAGNOSIS secondary to coronary artery disease. ASSOCIATED CONDITIONS AND COMPLICATIONS Recent successful Code Blue. Metabolic encephalopathy. Recent acute kidney injury. Pulmonary embolism. Acute respiratory insufficiency. Recent shock liver. Hypertension. COPD. Tobacco dependency. Lumbar disc disease. Overweight with BMI 28.9. PROCEDURES None. CONSULTS [facility] CLINICAL RESUME Mr. Goodman is a 71-year-old gentleman who was made direct admit to [facility] for palliative care with [facility]. He presented to [facility] Emergency Room via EMS on 12/21/2016. He was at home when he passed out. was there. EMS was activated, and CPR was promptly started. He did have episodes of V-tach and required four cardioversions. He also received epinephrine. He was intubated. In the emergency room, he was evaluated. CT of chest showed severe consolidation of right lung--pneumonia or possible aspiration. White count was quite elevated. Initial troponin was 0.16. He was acidotic with pH [place] 7.170[place] [address]. He was subsequently transferred to [facility] for intensive care. During his stay at [facility], he had a persistent metabolic encephalopathy and did develop shock liver and acute kidney injury. He underwent CT PE protocol and was found to have right middle lobe pulmonary emboli. Additionally on CT scan a T9 fracture was found. Neurosurgery was consulted, and they do not feel surgery was indicated, recommending a brace. While he did stabilize medically in that his acute kidney injury and acute shock liver was showing improvement, he never really regained consciousness. He was able to be successfully extubated yesterday but his consciousness has not improved. Family members do not feel he would want further care or support. Indeed, in talking with his daughter, it sounds as if he would not have wanted resuscitation but they could not find paperwork at scene prior to EMS's activation. His also has been quite ill with multiple myeloma. She resides in [place], [place], and the logistics of getting down to see him at [facility] is quite a struggle for her. [facility] was initiated while at [facility], and ultimately arrangements for continued medical care at [facility] were made. Dr. Cardoso was notified by Dr. Tavera, and case was discussed at length. It seems very reasonable for patient to have his hospice care provided at [facility] to facilitate comfort on friends and family members as well as for the patient's comfort. He was subsequently placed in inpatient admission status at [facility]. Hospice care was initiated with [facility]. It is thought that his length of stay will need to be greater than two midnights. Patient does appear terminal secondary to his underlying coronary artery disease. For complete details of the H&P refer to that document. LABORATORY None obtained - the patient terminal and on hospice. HOSPITAL COURSE The patient was placed in inpatient admission status under the care of Dr. Cardoso. He was made inpatient for hospice care secondary to terminal coronary artery disease. We did consult with [facility] who saw the patient on day of arrival. We did work aggressively to control pain and suffering. Morphine was available at 1-10 mg IV q. 30 minutes to help with pain and air hunger. Additionally we had lorazepam 0.5 to 1 mg IV available every 4 hours as needed for anxiety, agitation and air hunger. We did continue scopolamine patch which had been started at [facility]. Levsin was made available as needed for secretions. Supplemental oxygen was made available as needed for comfort measures. Zofran was available as needed to help with nausea. He was made DNR secondary to request. Overall his hospital course was one of slow decline. Through the help of hospice his symptoms were well controlled. Morning of the hospital day #1, he passed quietly. His daughter was at bedside. She reported that shortly before he passed, as she was having closure with her father and did tell him that she would not abandon Bertha (the patient's ). Shortly thereafter, he had his last breath and was motionless since. The time of was 11:01 hours. Cause of was secondary to coronary artery disease. Manner of was natural. No resuscitation was initiated secondary to patient being DNR. DNR orders were written at time of discharge. Tobacco did play a role in patient's . Family members and hospice nurse were notified. Body was able to be released to the mortuary. Narrative disclaimer: Above narrative is a brief summary of the patient's hospitalization; for complete details of the hospital course, refer to the medical record. [facility]
[2016-12-27] MEDS ORDERED: SCOPOLAMINE PATCH REMOVAL TD SCH (16:30)
== END 2016-12-25 11:01 | disposition expired | DRG 302 ==
LOC: MED 15:48
PROVIDERS: ADMIT Hospitalist; ATTEND Hospitalist
DX: I25.10 Atherosclerotic heart disease of native coronary artery without angina pectoris (principal); G93.41 Metabolic encephalopathy; I26.99 Other pulmonary embolism without acute cor pulmonale; K72.00 Acute and subacute hepatic failure without coma; N17.9 Acute kidney failure, unspecified; I10 Essential (primary) hypertension; J44.9 Chronic obstructive pulmonary disease, unspecified; F17.200 Nicotine dependence, unspecified, uncomplicated; M51.36 Other intervertebral disc degeneration, lumbar region; R06.89 Other abnormalities of breathing; E66.3 Overweight; Z86.74 Personal history of sudden cardiac arrest; Z68.29 Body mass index [BMI] 29.0-29.9, adult; Z66 Do not resuscitate; Z79.02 Long term (current) use of antithrombotics/antiplatelets; Z79.899 Other long term (current) drug therapy